=== PATIENT | male | born 1955 | race African-American/Black ===

== ENCOUNTER → 2017-03-08 | Outpatient (CLI) | payer BC ==
[~2017-03-08] MED LIST: CEFAZOLIN 1000MG PREMIX 50 ML IV ONE; IOHEXOL-300 100 ML BOTTLE ONE
[2017-03-08 11:15] VITALS: BP 136/79
[2017-03-08 11:20] VITALS: BP 139/74
[2017-03-08 11:25] VITALS: BP 142/82
[2017-03-08 11:30] VITALS: BP 151/77
[2017-03-08 11:34] VITALS: BP 144/69
== END | disposition home or self-care (01) ==
LOC: ANGIO 10:36
PROVIDERS: ATTEND Internal Medicine Nephrology
DX: Z45.2 Encounter for adjustment and management of vascular access device (principal); I82.409 Acute embolism and thrombosis of unspecified deep veins of unspecified lower extremity
CPT/HCPCS: 37191; C1769; C1880; J0690; Q9967